=== PATIENT | male | born 1960 | race Caucasian/White ===

== ENCOUNTER 2017-03-24 03:45 | Emergency (ER) | payer MEDICAID ==
--- NOTE | 2017-03-24 04:29 | ED Physician Chart ---
Chief Complaint/HPI - Patient Information Date Seen:: 03/24/17 Time Seen:: 04:20 Chief Complaint:: left leg pain History of Present Illness:: pt is having a flare of his chronic l sciatic pain which he has on/off since in senior care when he injured his back lifting free weights. he injured it again yrs ago when he stepped in a whole. his pain starts behind left hip...and radiates down to the foot..ache pain. is same as in past. he has had flare up of his chronic pain. he says he is not on regular narcotics but refuses to say when last time he was rxd it was...and is angry w me for asking. no fever. pt walked into ed without trouble. says he is homeless. he admits at 1 point to a past hx of heroin abuse but not lately. Allergies:: Allergies Allergy/AdvReac Type Severity Reaction Status Date / Time No Known Allergies Allergy Verified 03/24/17 04:10 Vitals:: Vital Signs - 8 hr 03/24/17 03:45 Temp 98.1 F HR 89 RR 20 BP 162/95 O2 Sat % 95 Historian:: Patient Review of Systems - Review of Systems General/Constitutional: No fever, No chills, No weight loss, No weakness, No diaphoresis, No edema, No loss of appetite Skin: No skin lesions, No rash, No bruising Head: No headache, No light-headedness Eyes: No loss of vision, No pain, No diplopia ENT: No earache, No nasal drainage, No sore throat, No tinnitus Neck: No neck pain, No swelling, No thyromegaly, No stiffness, No mass noted Cardio Vascular: No chest pain, No palpitations, No PND, No orthopnea, No edema Pulmonary: No SOB, No cough, No sputum, No wheezing GI: No nausea, No vomiting, No diarrhea, No pain, No melena, No hematochezia, No constipation, No hematemesis G/U: No dysuria, No frequency, No hematuria Musculoskeletal: Bone or joint pain, No back pain, No muscle pain Endocrine: No polyuria, No polydipsia Psychiatric: No prior psych history, No depression, No anxiety, No suicidal ideation Hematopoietic: No bruising, No lymphadenopathy Allergic/Immuno: No urticaria, No angioedema Neurological: No syncope, No focal symptoms, No weakness, No paresthesia, No headache, No seizure, No dizziness, No confusion, No vertigo Past Medical History - Past Medical History Past Medical History: HTN, DM Social History: Illicit Drug Use (heroin hx) Medication: Reviewed Family Medical History - Family Member Grandmother History Unknown: Yes Mother History Unknown: Yes Ethnicity: Non- Living Status: Physical Exam - Physical Examination General/Constitutional: Awake, Well-developed, well-nourished, Alert, No distress, GCS 15, Non-toxic appearing, Ambulatory Other Gen/Cons comments:: slt overweight. pt is very alert and has been yelling a staff since arrival he "needs pain meds now". he has nonstop speech and is irritable and feels we dont appreciate his pain ( even after I have told him I will give him a rx). he appears very alert for 4; 30 am and his fast pressured speech and hyperexcitable state seem likely he could be in acute withdrawel which he venemently denies. Head: Atraumatic Eyes: Lids, conjuctiva normal, PERRL, EOMI Skin: Nl inspection, No rash, No skin lesions, No ecchymosis, Well hydrated, No lymphadenopathy ENMT: External ears, nose nl, Nasal exam nl, Lips, teeth, gums nl Neck: Nontender, Full ROM w/o pain, No JVD, No nuchal rigidity, No bruit, No mass, No stridor Respiratory: Nl effort/Exclusion, Clear to Auscultation, No Wheeze/Rhonchi/Rales Cardio Vascular: RRR, No murmur, gallop, rubs, NL S1 S2 GI: No tenderness/rebounding/guarding, No organomegaly, No hernia, Normal BS's, Nondistended, No mass/bruits, No McBurney tenderness : No CVA tenderness Extremities: No tenderness or effusion, Full ROM, normal strength in all extremities, No edema, Normal digits & nails Other Extremities comments:: nrml appearing lt leg/hip/knee. no red. no edema. ok pulses. ok str. walks ok. ok rom. no cva tndr. Neuro/Psych: Alert/oriented, DTR's symmetric, Normal sensory exam, Normal motor strength, Judgement/insight normal, Mood normal, Normal gait, No focal deficits Misc: normal gait, Normal back, No paraspinal tenderness ED Septic Shock - . Is Septic Shock (SBP<90, OR Lactate>4 mmol\\L) present?: No - <6hrs of presentation: Vital Signs: Vital Signs - 8 hr 03/24/17 03:45 Temp 98.1 F HR 89 RR 20 BP 162/95 O2 Sat % 95 Reassessment (Disposition) - Reassessment Reassessment Condition:: Improved - Diagnosis Diagnosis:: 1 exacerbation of chronic left sciatic pain //chronic pain 2 htn - Aftercare/Follow up Instructions Aftercare/Follow-Up Instructions:: Counseled pt regarding lab results/diagnosis & need follow up Medication Prescribed:: rx norco 5s no 14 - Patient Disposition Discharge/Transfer:: Home Condition at Disposition:: Improved ED Discharge Plan - Patient Disposition Instructions: Hip Pain
== END 2017-03-24 04:36 | disposition home or self-care (01) ==
LOC: ER 03:45
DX: M79.605 Pain in left leg (principal); I10 Essential (primary) hypertension; E11.9 Type 2 diabetes mellitus without complications
CPT/HCPCS: Z7502

== ENCOUNTER 2017-11-14 16:28 | Inpatient (IN) | payer MEDICAID ==
[2017-11-14] MEDS ORDERED: INSULIN HUMAN REGULAR 100 UNITS/ML UNIT IV ONE (16:53)
[2017-11-14] MEDS ORDERED: INSULIN HUMAN REGULAR 100 UNITS/ML UNIT ONE (17:00)
[2017-11-14 17:01] LABS: % BASOPHILS 0.3 % (0.0-2.0); % EOSINOPHILS 1.2 % (0.0-5.0); % LYMPHOCYTES 28.9 % (20.0-50.0); % MONOCYTES 5.9 % (2.0-10.0); % NEUTROPHILS 63.7 % (40.0-80.0); EOSINOPHILE ABSOLUTE 0.1 Th/cmm (0.1-0.4); HEMATOCRIT 45.6 % (41.0-60); HEMOGLOBIN 15.3 gm/dL (12-16); LYMPHOCYTE ABSOLUTE 2.8 Th/cmm (1.5-3.0); MEAN CELL VOLUME 90.9 fl (80-99); MEAN CORPUSCULAR HEMOGLOBIN 30.5 pg (26.0-30.0); MEAN CORPUSCULAR HGB CONC 33.6 pg (28.0-36.0); MEAN PLATELET VOLUME 9.7 fl; MONOCYTE ABSOLUTE 0.6 Th/cmm (0.3-1.0); NEUTROPHILE ABSOLUTE 6.1 Th/cmm (1.8-8.0); PLATELET COUNT 236 Th/cmm (150-400); RED BLOOD COUNT 5.01 Mil/cmm (4.30-5.70); RED CELL DISTRIBUTION WIDTH 12.1 % (11.5-20.0); WHITE BLOOD COUNT 9.6 Th/cmm (4.8-10.8)
[2017-11-14 17:07] LABS: pH 7.47 (7.35-7.45)
--- NOTE | 2017-11-14 17:07 | ED Physician Chart ---
ED Chief Complaint/HPI - Patient Information Date Seen:: 11/14/17 Time Seen:: 16:50 Chief Complaint:: HIGH BLOOD SUGAR History of Present Illness:: THIS IS A 57 YO HOMELESS MALE DIABETIC WHO IS CONCERNED ABOUT HIS SUGAR BEING ELEVATED. HE DENIES CHEST PAIN, ABDOMINAL PAIN AND HEADACHES. HE DENIES DRINKING ALCOHOL AND DRUG BUT ADMITS TO HEAVY SMOKING. HE HAS BEEN HERE SEVERAL TIMES IN THE PAST FOR THE SAME REASONS. HE HAS HYPERTENSION, DIABETES, DEPRESSION AND ATRIAL FIB. Allergies:: Allergies Allergy/AdvReac Type Severity Reaction Status Date / Time No Known Allergies Allergy Verified 03/24/17 04:10 Vitals:: Vital Signs - 8 hr 11/14/17 16:46 Temp 97.6 F HR 102 RR 18 BP 141/90 O2 Sat % 98 ED Review of Systems - Review of Systems General/Constitutional: No fever, No chills, No weight loss, No weakness, No diaphoresis, Edema, No loss of appetite Skin: No skin lesions, No rash, No bruising Head: No headache, No light-headedness Eyes: No loss of vision, No pain, No diplopia ENT: No earache, No nasal drainage, No sore throat, No tinnitus Neck: No neck pain, No swelling, No thyromegaly, No stiffness, No mass noted Cardio Vascular: No chest pain, No palpitations, No PND, orthopnea, edema Pulmonary: No SOB, No cough, No sputum, No wheezing GI: No nausea, No vomiting, No diarrhea, No pain, No melena, No hematochezia, No constipation, No hematemesis G/U: No dysuria, No frequency, No hematuria Musculoskeletal: No bone or joint pain, No back pain, No muscle pain Endocrine: No polyuria, No polydipsia Psychiatric: No prior psych history, No depression, No anxiety, No suicidal ideation Hematopoietic: No bruising, No lymphadenopathy Allergic/Immuno: No urticaria, No angioedema Neurological: No syncope, No focal symptoms, No weakness, No paresthesia, No headache, No seizure, No dizziness, No confusion, No vertigo ED Past Medical History - Past Medical History Obtainable: Yes Past Medical History: HTN, DM, CHF Family History: None Social History: Smoker, No Alcohol, No Drug Use, Single, Homeless Surgical History: None Psychiatricy History: Depression Medication: Reviewed Family Medical History - Family Member Grandmother History Unknown: Yes Mother History Unknown: Yes Ethnicity: Non- Living Status: ED Physical Exam - Physical Examination General/Constitutional: Awake, Well-developed, well-nourished, Alert, No distress, GCS 15, Non-toxic appearing, Ambulatory Head: Atraumatic Eyes: Lids, conjuctiva normal, PERRL, EOMI Skin: Nl inspection, No rash, No skin lesions, No ecchymosis, Well hydrated, No lymphadenopathy ENMT: External ears, nose nl, Nasal exam nl, Lips, teeth, gums nl Neck: Nontender, Full ROM w/o pain, No JVD, No nuchal rigidity, No bruit, No mass, No stridor Respiratory: Nl effort/Exclusion, Clear to Auscultation, No Wheeze/Rhonchi/Rales Cardio Vascular: RRR, No murmur, gallop, rubs, NL S1 S2 Other Cardio Vascular comments:: heart beat atrial fib with a rate of 95 GI: No tenderness/rebounding/guarding, No organomegaly, No hernia, Normal BS's, Nondistended, No mass/bruits, No McBurney tenderness : No CVA tenderness Extremities: No tenderness or effusion, Full ROM, normal strength in all extremities, No edema, Normal digits & nails Neuro/Psych: Alert/oriented, DTR's symmetric, Normal sensory exam, Normal motor strength, Judgement/insight normal, Mood normal, Normal gait, No focal deficits Misc: Normal back, No paraspinal tenderness ED Labs/Radiology/EKG Results - Lab Results Results: Laboratory Tests 11/14/17 16:40 POC Glucose 548 H* Abnormal Lab Results 11/14/17 11/14/17 11/14/17 16:40 16:45 16:45 WBC 9.6 RBC 5.01 Hgb 15.3 Hct 45.6 MCV 90.9 MCH 30.5 H MCHC Differential 33.6 RDW 12.1 Plt Count 236 MPV 9.7 Neutrophils % 63.7 Lymphocytes % 28.9 Monocytes % 5.9 Eosinophils % 1.2 Basophils % 0.3 PT 10.6 INR 1.02 PTT (Actin FS) 25.2 L Specimen Source Sample Site pH pCO2 pO2 HCO3 Base Excess O2 Saturation Antonio Test Vent Rate Inspired O2 Tidal Volume PEEP Pressure (ins/psv/peep) Critical Value Sodium Potassium Chloride Carbon Dioxide Anion Gap BUN Creatinine Est GFR ( Amer) Est GFR (Non-Af Amer) BUN/Creatinine Ratio Glucose POC Glucose 548 H* Calcium Total Bilirubin AST ALT Alkaline Phosphatase Troponin I Total Protein Albumin Globulin Albumin/Globulin Ratio TSH Ethyl Alcohol 11/14/17 11/14/17 11/14/17 16:45 16:45 16:45 WBC RBC Hgb Hct MCV MCH MCHC Differential RDW Plt Count MPV Neutrophils % Lymphocytes % Monocytes % Eosinophils % Basophils % PT INR PTT (Actin FS) Specimen Source Sample Site pH pCO2 pO2 HCO3 Base Excess O2 Saturation Antonio Test Vent Rate Inspired O2 Tidal Volume PEEP Pressure (ins/psv/peep) Critical Value Sodium 126 L Potassium 3.5 Chloride 91 L Carbon Dioxide 22.0 Anion Gap 16.5 H BUN 14 Creatinine 1.1 Est GFR ( Amer) > 60.0 Est GFR (Non-Af Amer) > 60.0 BUN/Creatinine Ratio 12.7 Glucose 532 H* POC Glucose Calcium 8.9 Total Bilirubin 0.5 AST 16 ALT 23 Alkaline Phosphatase 107 H Troponin I 0.02 Total Protein 6.6 Albumin 3.8 L Globulin 2.8 Albumin/Globulin Ratio 1.4 TSH 1.75 Ethyl Alcohol 11/14/17 11/14/17 11/14/17 16:45 16:55 17:49 WBC RBC Hgb Hct MCV MCH MCHC Differential RDW Plt Count MPV Neutrophils % Lymphocytes % Monocytes % Eosinophils % Basophils % PT INR PTT (Actin FS) Specimen Source Arterial Sample Site Right Radial pH 7.47 H pCO2 35.0 pO2 74.0 L HCO3 26.5 H Base Excess 2.0 O2 Saturation 96.0 Antonio Test Positive Vent Rate NA Inspired O2 21 Tidal Volume NA PEEP NA Pressure (ins/psv/peep) NA Critical Value SH Sodium Potassium Chloride Carbon Dioxide Anion Gap BUN Creatinine Est GFR ( Amer) Est GFR (Non-Af Amer) BUN/Creatinine Ratio Glucose POC Glucose 311 H Calcium Total Bilirubin AST ALT Alkaline Phosphatase Troponin I Total Protein Albumin Globulin Albumin/Globulin Ratio TSH Ethyl Alcohol < 10 - Radiology Results Results: chest x-ray = CARDIOMEGALY - EKG Interpretations EKG Time:: 16:45 Rate & Rhythm: 105 WITH ATRIAL FIB AND FLUTTER 2:1 BLOCK [place]: LEFT ED Assessment - Assessment General Assessment: DIABETES MELLITUS UNCONTROLLED ED Septic Shock - . Is Septic Shock (SBP<90, OR Lactate>4 mmol\L) present?: No - <6hrs of presentation: Vital Signs: Vital Signs - 8 hr 11/14/17 16:46 Temp 97.6 F HR 102 RR 18 BP 141/90 O2 Sat % 98 ED Reassessment (Disposition) - Reassessment Reassessment:: DIABETES MELLITUS UNCONTROLLED - Diagnosis Diagnosis:: DIABETES MELLITUS UNCONTROLLED ATRIAL FIB/FLUTTER - Patient Disposition Discharge/Transfer:: Acute Care w/in this hosp Admitting Medical Physician:: Patience Romo Condition at Disposition:: Improved ED Discharge Plan - Patient Disposition Admit/Discharge/Transfer: Acute Care w/in this hosp Condition at Disposition: Improved Additional Instructions: THIS PATIENT WILL BE CARED FOR BY DR. MERCEDES STARTING AT 1900 HRS.
[2017-11-14 17:08] LABS: ALLEN TEST Positive
[2017-11-14 17:17] LABS: INR 1.02 (0.5-1.4); PROTHROMBIN TIME (TEST) 10.6 SECONDS (9.5-11.5)
[2017-11-14 17:19] LABS: ALB/GLOB RATIO 1.4 (1.0-1.8); ALBUMIN 3.8 gm/dL (4.2-5.5); ALKALINE PHOSPHATASE 107 U/L (34-104); ANION GAP 16.5 (7.0-16.0); BILIRUBIN,TOTAL 0.5 mg/dL (0.3-1.0); BUN - UREA NITROGEN 14 mg/dL (7-25); CALCIUM SERUM 8.9 mg/dL (8.6-10.3); CHLORIDE 91 mEq/L (98-107); CREATININE - SERUM 1.1 mg/dL (0.7-1.3); GFR AFRICAN-AMERICAN > 60.0 ml/min (>90); GFR NON AFRICAN-AMERICAN > 60.0 ml/min; POTASSIUM SERUM 3.5 mEq/L (3.5-5.1); SGOT 16 U/L (13-39); SGPT/ALT 23 U/L (7-52); SODIUM SERUM 126 mEq/L (136-145); TOTAL PROTEIN,SERUM 6.6 gm/dL (6.0-8.3)
[2017-11-14 17:22] LABS: GLUCOSE 532 mg/dL (70-105)
[2017-11-14] MEDS ORDERED: Sodium Chloride 0.9% 1,000 ML IV ONE (17:45)
[2017-11-14] MEDS ORDERED: Potassium Chloride Elixir 20 mEq /15 mL UDC PO ONE (17:45)
[2017-11-14] MEDS ORDERED: Potassium Chloride 20 mEq ER Tab PO ONE (18:02)
[2017-11-14] MEDS ORDERED: Albuterol/Ipratropium Neb 3 ML AERS HHN PRN (19:00)
[2017-11-14] MEDS ORDERED: INSULIN HUMAN REGULAR 100 UNITS/ML UNIT SUBQ ONE (19:01)
[2017-11-14 20:11] LABS: URINE MICROSCOPIC INDICATED? YES; URINE SOURCE CLEAN C
[2017-11-14 20:18] LABS: URINE BILIRUBIN NEGATIVE (NEGATIVE); URINE BLOOD NEGATIVE (NEGATIVE); URINE GLUCOSE (UA) >=1000 mg/dL (NEGATIVE); URINE KETONE NEGATIVE (NEGATIVE); URINE LEUKOCYTE ESTERASE NEGATIVE (NEGATIVE); URINE NITRATE NEGATIVE (NEGATIVE); URINE PH 5.5 (4.6 - 8.0); URINE PROTEIN NEGATIVE (NEGATIVE); URINE UROBILINOGEN 0.2 E.U./dL (0.2 - 1.0)
[2017-11-14 20:27] LABS: URINE CLARITY CLEAR (CLEAR); URINE COLOR YELLOW
[2017-11-14 20:33] LABS: URINE BACTERIA OCCASIONAL /hpf (NONE SEEN); URINE EPITHELIAL CELLS RARE /lpf (FEW); URINE RBC 0-2 /hpf (0-5); URINE WBC 0-2 /hpf (0-5)
[2017-11-14 21:38] LABS: AMPHETAMINE URINE POSITIVE (NEGATIVE); BARBITURATES URINE NEGATIVE (NEGATIVE); COCAINE METABOLITE QUAL URINE NEGATIVE (NEGATIVE); PHENCYCLIDINE (PCP) URINE NEGATIVE (NEGATIVE)
[2017-11-14 21:39] LABS: BENZODIAZEPINES QUAL URINE NEGATIVE (NEGATIVE); CANNABINOID THC NEGATIVE (NEGATIVE); METHADONE URINE NEGATIVE (NEGATIVE); METHAMPHETAMINES QUAL URINE POSITIVE (NEGATIVE); OPIATES (MORPHINE) QUAL. URINE NEGATIVE (NEGATIVE); TRICYCLICS (TCA) QUAL. URINE NEGATIVE (NEGATIVE)
[2017-11-14] MEDS: Sodium Chloride 0.45% 1,000 ML IV SCH (21:48)
--- NOTE | 2017-11-14 22:32 | History & Physical ---
ADMIT DATE: 11/14/2017 CHIEF COMPLAINT: Severe hyperglycemia. HISTORY OF PRESENT ILLNESS: The patient is a 57-year-old male with long history of insulin required diabetes mellitus, atrial fibrillation, hypertension, presented to the Emergency Room with severe hyperglycemia. No chest pain, no shortness of breath, no nausea, no vomiting. On arrival, his blood sugar was 548. The patient had 10 units of regular insulin IV push. Admitted to telemetry for more advanced treatment, started on IV fluids, CCHO diet, sliding scale regular insulin coverage. He is to resume his home medication. PAST MEDICAL HISTORY: Significant for insulin required diabetes mellitus, history of chronic atrial fibrillation, hypertension, obesity. PAST SURGICAL HISTORY: No recent surgery. ALLERGIES: None. MEDICATIONS: Follow admission reconciliation. SOCIAL HISTORY: No smoking, no alcohol, no drug. FAMILY HISTORY: Noncontributory. REVIEW OF SYSTEMS: IMMUNO SYSTEM: No history of chronic immuno disorder. CARDIOVASCULAR SYSTEM: He has history of hypertension, chronic atrial fibrillation. ENDOCRINE SYSTEM: He has history of diabetes mellitus, insulin required. GASTROINTESTINAL SYSTEM: No upper or lower gastrointestinal bleed. NEUROLOGICAL SYSTEM: No seizure disorder. SKELETOMUSCULAR SYSTEM: No muscular dystrophy. HEMATOLOGIC SYSTEM: No bleeding tendencies. RESPIRATORY SYSTEM: No asthma. GENITOURINARY: No dysuria or hematuria. PHYSICAL EXAMINATION: GENERAL: He is awake, alert, oriented, not in pain or distress. VITAL SIGNS: Temperature 98.6, heart rate 66, blood pressure 140/80. HEENT: Normocephalic. Pupils are reactive to light and accommodation. Sclerae clear. NECK: Supple. Negative for lymphadenopathy, JVD or bruit. CHEST: Air entry bilaterally normal. No rhonchi or wheezing. HEART: S1, S2 normal, no gallop rhythm. ABDOMEN: Soft, bowel sounds positive. EXTREMITIES: No edema. NEUROLOGIC: He is awake, alert, oriented. No focal motor deficit. Cranial nerves 2-12 is intact. LABORATORY DATA: White blood cell 9.6, hemoglobin 15.3, hematocrit 45.6, platelets 236. INR 1.02. ABG: pH is 7.47, pCO2 is 74, pO2 is 35. Sodium 126, potassium 3.5, BUN 14, creatinine 0.1. Urine more than 1000 glucose. ASSESSMENT: 1. Uncontrolled diabetes mellitus. 2. Hypertension. 3. Chronic atrial fibrillation. 4. Hyponatremia. 5. Obesity. PLAN: The patient admitted to telemetry under Dr. Romo's service. Start him on IV fluid, CCHO diet, sliding scale with regular insulin coverage. The patient will resume his home medication, Lovenox 40 mg subcutaneously daily. The patient is a full code. JOB# [id number]
[2017-11-14] MEDS: INSULIN ASPART SLIDING SCALE 100 UNITS/ML UNIT SUBQ SCH (23:18)
[2017-11-15] MEDS ORDERED: Pneumococcal Vaccine 0.5 mL Vial IM ONE ×2 (01:06→11:45)
[2017-11-15] MEDS: INSULIN ASPART SLIDING SCALE 100 UNITS/ML UNIT SUBQ SCH ×4 (07:43→21:28)
--- NOTE | 2017-11-15 07:45 | Diagnostic Imaging Report ---
CHEST X-RAY: AP view INDICATION: pain COMPARISON: 12/13/2016 FINDINGS: Minimal bibasal atelectatic changes are noted. The patient is mildly rotated. No focal consolidation or effusions. Heart is at the upper limits of normal in size. Degenerative changes of the spine are noted. IMPRESSION: Minimal bibasal atelectatic changes. No focal consolidation identified.
[2017-11-15] MEDS: Diltiazem 30 mg Tab PO SCH ×3 (09:09→21:34)
[2017-11-15] MEDS: Sodium Chloride 0.45% 1,000 ML IV SCH (11:33)
--- NOTE | 2017-11-15 16:42 | Internal Medicine Prog Note ---
Internal Medicine Subjective - Subjective Patient seen and examined:: with staff Patient is:: awake, in bed, talking Per staff patient has:: no adverse event (HE IS DOING BETTER.) Internal Medicine Objective - Results Result Diagrams: 11/14/17 16:45 11/14/17 16:45 Recent Labs: Laboratory Last Values WBC 9.6 Th/cmm (4.8-10.8) 11/14/17 16:45 RBC 5.01 Mil/cmm (4.30-5.70) 11/14/17 16:45 Hgb 15.3 gm/dL (12-16) 11/14/17 16:45 Hct 45.6 % (41.0-60) 11/14/17 16:45 MCV 90.9 fl (80-99) 11/14/17 16:45 MCH 30.5 pg (26.0-30.0) H 11/14/17 16:45 MCHC Differential 33.6 pg (28.0-36.0) 11/14/17 16:45 RDW 12.1 % (11.5-20.0) 11/14/17 16:45 Plt Count 236 Th/cmm (150-400) 11/14/17 16:45 MPV 9.7 fl 11/14/17 16:45 Neutrophils % 63.7 % (40.0-80.0) 11/14/17 16:45 Lymphocytes % 28.9 % (20.0-50.0) 11/14/17 16:45 Monocytes % 5.9 % (2.0-10.0) 11/14/17 16:45 Eosinophils % 1.2 % (0.0-5.0) 11/14/17 16:45 Basophils % 0.3 % (0.0-2.0) 11/14/17 16:45 PT 10.6 SECONDS (9.5-11.5) 11/14/17 16:45 INR 1.02 (0.5-1.4) 11/14/17 16:45 PTT (Actin FS) 25.2 SECONDS (26.0-38.0) L 11/14/17 16:45 Specimen Source Arterial 11/14/17 16:55 Sample Site Right Radial 11/14/17 16:55 pH 7.47 (7.35-7.45) H 11/14/17 16:55 pCO2 35.0 mmHg (35.0-45.0) 11/14/17 16:55 pO2 74.0 mmHg (80.0-100.0) L 11/14/17 16:55 HCO3 26.5 mEq/L (20.0-26.0) H 11/14/17 16:55 Base Excess 2.0 mEq/L (-3.0-3.0) 11/14/17 16:55 O2 Saturation 96.0 % (92.0-100.0) 11/14/17 16:55 Antonio Test Positive 11/14/17 16:55 Vent Rate NA 11/14/17 16:55 Inspired O2 21 11/14/17 16:55 Tidal Volume NA 11/14/17 16:55 PEEP NA 11/14/17 16:55 Pressure (ins/psv/peep) NA 11/14/17 16:55 Critical Value SH 11/14/17 16:55 Sodium 126 mEq/L (136-145) L 11/14/17 16:45 Potassium 3.5 mEq/L (3.5-5.1) 11/14/17 16:45 Chloride 91 mEq/L (98-107) L 11/14/17 16:45 Carbon Dioxide 22.0 mEq/L (21.0-31.0) 11/14/17 16:45 Anion Gap 16.5 (7.0-16.0) H 11/14/17 16:45 BUN 14 mg/dL (7-25) 11/14/17 16:45 Creatinine 1.1 mg/dL (0.7-1.3) 11/14/17 16:45 Est GFR ( Amer) > 60.0 ml/min (>90) 11/14/17 16:45 Est GFR (Non-Af Amer) > 60.0 ml/min 11/14/17 16:45 BUN/Creatinine Ratio 12.7 11/14/17 16:45 Glucose 532 mg/dL (70-105) H* 11/14/17 16:45 POC Glucose 295 MG/DL (70 - 105) H 11/15/17 06:38 Calcium 8.9 mg/dL (8.6-10.3) 11/14/17 16:45 Total Bilirubin 0.5 mg/dL (0.3-1.0) 11/14/17 16:45 AST 16 U/L (13-39) 11/14/17 16:45 ALT 23 U/L (7-52) 11/14/17 16:45 Alkaline Phosphatase 107 U/L (34-104) H 11/14/17 16:45 Troponin I 0.02 ng/mL (0.01-0.05) 11/14/17 16:45 Total Protein 6.6 gm/dL (6.0-8.3) 11/14/17 16:45 Albumin 3.8 gm/dL (4.2-5.5) L 11/14/17 16:45 Globulin 2.8 gm/dL 11/14/17 16:45 Albumin/Globulin Ratio 1.4 (1.0-1.8) 11/14/17 16:45 TSH 1.75 uIU/ml (0.34-5.60) 11/14/17 16:45 Urine Source CLEAN C 11/14/17 20:05 Urine Color YELLOW 11/14/17 20:05 Urine Clarity CLEAR (CLEAR) 11/14/17 20:05 Urine pH 5.5 (4.6 - 8.0) 11/14/17 20:05 Ur Specific [place] 1.015 (1.005-1.030) 11/14/17 20:05 Urine Protein NEGATIVE mg/dL (NEGATIVE) 11/14/17 20:05 Urine Glucose (UA) >=1000 mg/dL (NEGATIVE) H 11/14/17 20:05 Urine Ketones NEGATIVE mg/dL (NEGATIVE) 11/14/17 20:05 Urine Blood NEGATIVE (NEGATIVE) 11/14/17 20:05 Urine Nitrate NEGATIVE (NEGATIVE) 11/14/17 20:05 Urine Bilirubin NEGATIVE (NEGATIVE) 11/14/17 20:05 Urine Urobilinogen 0.2 E.U./dL (0.2 - 1.0) 11/14/17 20:05 Ur Leukocyte Esterase NEGATIVE (NEGATIVE) 11/14/17 20:05 Urine RBC 0-2 /hpf (0-5) H 11/14/17 20:05 Urine WBC 0-2 /hpf (0-5) 11/14/17 20:05 Ur Epithelial Cells RARE /lpf (FEW) 11/14/17 20:05 Urine Bacteria OCCASIONAL /hpf (NONE SEEN) 11/14/17 20:05 Urine Opiates Screen NEGATIVE (NEGATIVE) 11/14/17 20:05 Urine Methadone Screen NEGATIVE (NEGATIVE) 11/14/17 20:05 Ur Barbiturates Screen NEGATIVE (NEGATIVE) 11/14/17 20:05 Ur Tricyclics Screen NEGATIVE (NEGATIVE) 11/14/17 20:05 Ur Phencyclidine Scrn NEGATIVE (NEGATIVE) 11/14/17 20:05 Amphetamines Screen POSITIVE (NEGATIVE) H 11/14/17 20:05 U Methamphetamines Scrn POSITIVE (NEGATIVE) H 11/14/17 20:05 U Benzodiazepines Scrn NEGATIVE (NEGATIVE) 11/14/17 20:05 U Cocaine Metab Screen NEGATIVE (NEGATIVE) 11/14/17 20:05 U Cannabinoids Screen NEGATIVE (NEGATIVE) 11/14/17 20:05 Ethyl Alcohol < 10 mg/dL (0-10) 11/14/17 16:45 - Physical Exam Vitals and I&O: Vital Signs Temp 98.2 F 11/15/17 09:00 Pulse 96 11/15/17 14:00 Resp 27 11/15/17 14:00 BP 150/65 11/15/17 14:00 Pulse Ox 99 11/15/17 14:00 Intake & Output 11/14/17 11/15/17 11/15/17 18:59 06:59 18:59 Intake Total 500 883.75 Output Total 400 Balance 100 883.75 Weight (lbs) 99.79 kg Intake: Intake, IV Amount 883.75 Sodium Chloride 0.45% 1, 883.75 000 ml @ 75 mls/hr IV . [id number] [facility] Rx#:[id number] Oral 500 Output: Urine 400 Other: # Voids 1 # Bowel Movements 0 Weight Source Bedscale Active Medications: Current Medications Acetaminophen (Tylenol) 650 mg PO Q4H PRN PRN Reason: Pain (Moderate) Stop: 01/13/18 22:43 Albuterol/Ipratropium (Duoneb Neb) 3 ml HHN Q4H PRN PRN Reason: Wheezing Stop: 01/13/18 18:59 Atorvastatin Calcium (Lipitor) 40 mg PO DAILY [facility] PRN Reason: Protocol Stop: 01/14/18 08:59 Last Admin: 11/15/17 09:08 Dose: 40 mg Carvedilol (Coreg) 25 mg PO BID [facility] Stop: 01/14/18 08:59 Last Admin: 11/15/17 09:10 Dose: 25 mg Diltiazem HCl (Cardizem) 60 mg PO TID [facility] Stop: 01/14/18 08:59 Last Admin: 11/15/17 13:26 Dose: 60 mg Sodium Chloride (Nacl 0.45%) 1,000 mls @ 75 mls/hr IV .[id number] [facility] Stop: 01/13/18 18:59 Last Admin: 11/15/17 11:33 Dose: 75 mls/hr Insulin Aspart (Novolog Insulin Sliding Scale) 0 units SUBQ ACHS [facility] PRN Reason: Protocol Stop: 01/13/18 22:44 Last Admin: 11/15/17 11:27 Dose: 13 units Lisinopril (Zestril) 5 mg PO DAILY [facility] Stop: 01/14/18 08:59 Last Admin: 11/15/17 09:11 Dose: 5 mg Metformin HCl (Glucophage) 1,000 mg PO BID [facility] Stop: 01/14/18 08:59 Last Admin: 11/15/17 09:09 Dose: 1,000 mg Rivaroxaban (Xarelto) 20 mg PO DAILY [facility] Stop: 01/14/18 08:59 Last Admin: 11/15/17 09:11 Dose: 20 mg General: alert HEENT: NC/AT, PERRLA, EOMI, anicteric sclerae, throat clear Neck: Supple, No JVD, No thyromegaly, +2 carotid pulse wo bruit, No LAD Cardiovascular: RRR, Normal S1, Normal S2, without murmur Abdomen: soft, non-tender, non-distended Extremities: clear Neurological: no change Internal Medicine Assmt/Plan - Assessment Assessment: 1.UNCONTROLLED DM. 2.AFIB. 3.HTN. - Plan Plan: CHEM 7 IN AM.LEVEMIR 10 UNITS SC HS. Nutritional Asmnt/Malnutr-PDOC - Dietary Evaluation Malnutrition Findings (Please click <Entered> for more info): Nutritional Asmnt/Malnutrition Start: 11/15/17 14: 56 Text: Status: Complete Freq: Document 11/15/17 14:56 VIOLETTA (Rec: 11/15/17 15:09 LCHENG [email or web address]) Nutritional Asmnt/Malnutrition Patient General Information Nutritional Screening High Risk Consult Diagnosis uncontrolled DM Pertinent Medical Hx/Surgical Hx DM on insulin, chronic a fib, HTN, obesity Subjective Information Consult received for unconctrolled DM. RN called this morning that pt requested another sandwich again d/t pt feeling hungry after consuming 100% of breakfast. Talk with RN, will send double protein and veggies with meals. Pt seen lying in bed at time of visit, awake and alert. Pt is aware of risk of uncontrolled DM, ready to make some change on diet. Pt also reported he has no teeth, not able to chew the regular textured food. Offered [facility] soft ground diet, pt would like to take it. Per EMR, PO intake 100% of meals with extra snacks. Current Diet Order/ Nutrition Support CCHO-60gm, double protein double veggies Pertinent Medications novolog, glucophage, nacl 0.45 % Pertinent Labs 11/14 Na 126, K 3.5, Cl 91, BUN 14, Cr 1.1, glucose 532, POC 233-548 11/15 POC 295 Nutritional Hx/Data Height 1.68 m Height (Calculated Centimeters) 167.6 Current Weight (lbs) 99.79 kg Weight (Calculated Kilograms) 99.8 Weight (Calculated Grams) 34060.3 [place] Body Weight 142 Body Mass Index (BMI) 35.5 Weight Status Obese GI Symptoms GI Symptoms None Last BM none Difficult in: None Usual diet at home Pt stated he loves root bear, ice cream, cakes, no diet restrictions. Skin Integrity/Comment: ulceration to right leg and right knee Estimated Nutritional Goals BEE in Kcals: Adj wt of IBW Calories/Kcals/Kg 25-30 Kcals Calculated 4341-6806 Protein: Adj wt of IBW Protein g/k-1.2 Protein Calculated 73-87 Fluid: ml 1825-2190ml (1ml/kcal) Nutritional Problem 1. Problem Problem altered nutrition related labs Etiology hx of DM, not following diabetic diet Signs/Symptoms: glucose 532, POC 233-548 Malnutrition Alert Protein-Calorie Malnutrition N/A Is there a minimum of two criteria No selected? Query Text:Check all the applicable criteria. A minimum of two criteria are recommended for diagnosis of either severe or non-severe malnutrition. Intervention/Recommendation Comments 1. Recommend [facility] soft ground, CCHO-60gm with double protein and veggies. KELLEN Hogan said doctor will follow RD recommendation. Updated diet. 2. Pt was sleepy at sencond visit. Brief nutrition education provided. Handout left on table. Will talk more details on diabetic diet at next visit. 3. Monitor PO intake, wt, labs and skin integrity 4. F/U as high risk in 2-3 days, 11/17-11/18 Expected Outcomes/Goals Expected Outcomes/Goals 1. PO intake to meet at least 75% of nutritional needs. 2. Wt stability, skin to remain intact, labs to approach WNL.
[2017-11-15 18:28] LABS: A1C % 16.2 % (4.0-6.0)
[2017-11-15] MEDS: Insulin Detemir 100 units/mL 10mL Vial SUBQ SCH (21:30)
[2017-11-16 04:38] LABS: ALB/GLOB RATIO 1.3 (1.0-1.8); ALBUMIN 3.1 gm/dL (4.2-5.5); ALKALINE PHOSPHATASE 79 U/L (34-104); ANION GAP 9.1 (7.0-16.0); BILIRUBIN,TOTAL 0.4 mg/dL (0.3-1.0); BUN - UREA NITROGEN 19 mg/dL (7-25); CALCIUM SERUM 8.2 mg/dL (8.6-10.3); CARBON DIOXIDE 26.3 mEq/L (21.0-31.0); CHLORIDE 99 mEq/L (98-107); CREATININE - SERUM 1.1 mg/dL (0.7-1.3); GFR AFRICAN-AMERICAN > 60.0 ml/min (>90); GFR NON AFRICAN-AMERICAN > 60.0 ml/min; GLUCOSE 262 mg/dL (70-105); POTASSIUM SERUM 3.4 mEq/L (3.5-5.1); SGOT 18 U/L (13-39); SGPT/ALT 21 U/L (7-52); SODIUM SERUM 131 mEq/L (136-145); TOTAL PROTEIN,SERUM 5.5 gm/dL (6.0-8.3); URIC ACID 5.8 mg/dL (4.4-7.6)
[2017-11-16] MEDS: INSULIN ASPART SLIDING SCALE 100 UNITS/ML UNIT SUBQ SCH ×4 (06:58→21:16)
[2017-11-16] MEDS: Diltiazem 30 mg Tab PO SCH ×3 (08:24→21:15)
[2017-11-16] MEDS ORDERED: Potassium Chloride Elixir 20 mEq /15 mL UDC PO ONE (12:00)
[2017-11-16] MEDS: Sodium Chloride 0.45% 1,000 ML IV SCH (14:20)
--- NOTE | 2017-11-16 20:08 | Internal Medicine Prog Note ---
Internal Medicine Subjective - Subjective Service Date: 11/16/17 Patient seen and examined:: without staff (HE FEELS BETTER) Patient is:: awake, in bed, talking Per staff patient has:: no adverse event (HE IS DOING BETTER.) Internal Medicine Objective - Results Result Diagrams: 11/14/17 16:45 11/16/17 04:05 Recent Labs: Laboratory Last Values WBC 9.6 Th/cmm (4.8-10.8) 11/14/17 16:45 RBC 5.01 Mil/cmm (4.30-5.70) 11/14/17 16:45 Hgb 15.3 gm/dL (12-16) 11/14/17 16:45 Hct 45.6 % (41.0-60) 11/14/17 16:45 MCV 90.9 fl (80-99) 11/14/17 16:45 MCH 30.5 pg (26.0-30.0) H 11/14/17 16:45 MCHC Differential 33.6 pg (28.0-36.0) 11/14/17 16:45 RDW 12.1 % (11.5-20.0) 11/14/17 16:45 Plt Count 236 Th/cmm (150-400) 11/14/17 16:45 MPV 9.7 fl 11/14/17 16:45 Neutrophils % 63.7 % (40.0-80.0) 11/14/17 16:45 Lymphocytes % 28.9 % (20.0-50.0) 11/14/17 16:45 Monocytes % 5.9 % (2.0-10.0) 11/14/17 16:45 Eosinophils % 1.2 % (0.0-5.0) 11/14/17 16:45 Basophils % 0.3 % (0.0-2.0) 11/14/17 16:45 PT 10.6 SECONDS (9.5-11.5) 11/14/17 16:45 INR 1.02 (0.5-1.4) 11/14/17 16:45 PTT (Actin FS) 25.2 SECONDS (26.0-38.0) L 11/14/17 16:45 Specimen Source Arterial 11/14/17 16:55 Sample Site Right Radial 11/14/17 16:55 pH 7.47 (7.35-7.45) H 11/14/17 16:55 pCO2 35.0 mmHg (35.0-45.0) 11/14/17 16:55 pO2 74.0 mmHg (80.0-100.0) L 11/14/17 16:55 HCO3 26.5 mEq/L (20.0-26.0) H 11/14/17 16:55 Base Excess 2.0 mEq/L (-3.0-3.0) 11/14/17 16:55 O2 Saturation 96.0 % (92.0-100.0) 11/14/17 16:55 Antonio Test Positive 11/14/17 16:55 Vent Rate NA 11/14/17 16:55 Inspired O2 21 11/14/17 16:55 Tidal Volume NA 11/14/17 16:55 PEEP NA 11/14/17 16:55 Pressure (ins/psv/peep) NA 11/14/17 16:55 Critical Value SH 11/14/17 16:55 Sodium 131 mEq/L (136-145) L 11/16/17 04:05 Potassium 3.4 mEq/L (3.5-5.1) L 11/16/17 04:05 Chloride 99 mEq/L (98-107) 11/16/17 04:05 Carbon Dioxide 26.3 mEq/L (21.0-31.0) 11/16/17 04:05 Anion Gap 9.1 (7.0-16.0) 11/16/17 04:05 BUN 19 mg/dL (7-25) 11/16/17 04:05 Creatinine 1.1 mg/dL (0.7-1.3) 11/16/17 04:05 Est GFR ( Amer) > 60.0 ml/min (>90) 11/16/17 04:05 Est GFR (Non-Af Amer) > 60.0 ml/min 11/16/17 04:05 BUN/Creatinine Ratio 17.3 11/16/17 04:05 Glucose 262 mg/dL (70-105) H 11/16/17 04:05 POC Glucose 196 MG/DL (70 - 105) H 11/16/17 16:38 Hemoglobin A1c % 16.2 % (4.0-6.0) H 11/14/17 16:45 Uric Acid 5.8 mg/dL (4.4-7.6) 11/16/17 04:05 Calcium 8.2 mg/dL (8.6-10.3) L 11/16/17 04:05 Total Bilirubin 0.4 mg/dL (0.3-1.0) 11/16/17 04:05 AST 18 U/L (13-39) 11/16/17 04:05 ALT 21 U/L (7-52) 11/16/17 04:05 Alkaline Phosphatase 79 U/L (34-104) 11/16/17 04:05 Troponin I 0.02 ng/mL (0.01-0.05) 11/14/17 16:45 Total Protein 5.5 gm/dL (6.0-8.3) L 11/16/17 04:05 Albumin 3.1 gm/dL (4.2-5.5) L 11/16/17 04:05 Globulin 2.4 gm/dL 11/16/17 04:05 Albumin/Globulin Ratio 1.3 (1.0-1.8) 11/16/17 04:05 TSH 1.75 uIU/ml (0.34-5.60) 11/14/17 16:45 Urine Source CLEAN C 11/14/17 20:05 Urine Color YELLOW 11/14/17 20:05 Urine Clarity CLEAR (CLEAR) 11/14/17 20:05 Urine pH 5.5 (4.6 - 8.0) 11/14/17 20:05 Ur Specific [place] 1.015 (1.005-1.030) 11/14/17 20:05 Urine Protein NEGATIVE mg/dL (NEGATIVE) 11/14/17 20:05 Urine Glucose (UA) >=1000 mg/dL (NEGATIVE) H 11/14/17 20:05 Urine Ketones NEGATIVE mg/dL (NEGATIVE) 11/14/17 20:05 Urine Blood NEGATIVE (NEGATIVE) 11/14/17 20:05 Urine Nitrate NEGATIVE (NEGATIVE) 11/14/17 20:05 Urine Bilirubin NEGATIVE (NEGATIVE) 11/14/17 20:05 Urine Urobilinogen 0.2 E.U./dL (0.2 - 1.0) 11/14/17 20:05 Ur Leukocyte Esterase NEGATIVE (NEGATIVE) 11/14/17 20:05 Urine RBC 0-2 /hpf (0-5) H 11/14/17 20:05 Urine WBC 0-2 /hpf (0-5) 11/14/17 20:05 Ur Epithelial Cells RARE /lpf (FEW) 11/14/17 20:05 Urine Bacteria OCCASIONAL /hpf (NONE SEEN) 11/14/17 20:05 Urine Opiates Screen NEGATIVE (NEGATIVE) 11/14/17 20:05 Urine Methadone Screen NEGATIVE (NEGATIVE) 11/14/17 20:05 Ur Barbiturates Screen NEGATIVE (NEGATIVE) 11/14/17 20:05 Ur Tricyclics Screen NEGATIVE (NEGATIVE) 11/14/17 20:05 Ur Phencyclidine Scrn NEGATIVE (NEGATIVE) 11/14/17 20:05 Amphetamines Screen POSITIVE (NEGATIVE) H 11/14/17 20:05 U Methamphetamines Scrn POSITIVE (NEGATIVE) H 11/14/17 20:05 U Benzodiazepines Scrn NEGATIVE (NEGATIVE) 11/14/17 20:05 U Cocaine Metab Screen NEGATIVE (NEGATIVE) 11/14/17 20:05 U Cannabinoids Screen NEGATIVE (NEGATIVE) 11/14/17 20:05 Ethyl Alcohol < 10 mg/dL (0-10) 11/14/17 16:45 - Physical Exam Vitals and I&O: Vital Signs Temp 98.0 F 11/16/17 16:00 Pulse 69 11/16/17 16:53 Resp 19 11/16/17 16:00 BP 116/71 11/16/17 16:53 Pulse Ox 98 11/16/17 16:00 Intake & Output 11/16/17 11/16/17 11/17/17 06:59 18:59 06:59 Intake Total 1060 600 Balance 1060 600 Weight (lbs) 103.419 kg 103.419 kg Intake: Intake, IV Amount 1000 Sodium Chloride 0.45% 1, 1000 000 ml @ 75 mls/hr IV . [id number] [facility] Rx#:[id number] Oral 60 600 Other: # Voids 3 # Bowel Movements 1 Weight Source Bedscale Bedscale Active Medications: Current Medications Acetaminophen (Tylenol) 650 mg PO Q4H PRN PRN Reason: Pain (Moderate) Stop: 01/13/18 22:43 Albuterol/Ipratropium (Duoneb Neb) 3 ml HHN Q4H PRN PRN Reason: Wheezing Stop: 01/13/18 18:59 Atorvastatin Calcium (Lipitor) 40 mg PO DAILY [facility] PRN Reason: Protocol Stop: 01/14/18 08:59 Last Admin: 11/16/17 08:25 Dose: 40 mg Carvedilol (Coreg) 25 mg PO BID [facility] Stop: 01/14/18 08:59 Last Admin: 11/16/17 16:53 Dose: 25 mg Diltiazem HCl (Cardizem) 60 mg PO TID [facility] Stop: 01/14/18 08:59 Last Admin: 11/16/17 14:24 Dose: Not Given Sodium Chloride (Nacl 0.45%) 1,000 mls @ 75 mls/hr IV .[id number] [facility] Stop: 01/13/18 18:59 Last Admin: 11/16/17 14:20 Dose: 75 mls/hr Insulin Aspart (Novolog Insulin Sliding Scale) 0 units SUBQ ACHS [facility] PRN Reason: Protocol Stop: 01/13/18 22:44 Last Admin: 11/16/17 16:53 Dose: 3 units Insulin Detemir (Levemir Insulin) 10 units SUBQ HS [facility] PRN Reason: Protocol Stop: 01/14/18 20:59 Last Admin: 11/15/17 21:30 Dose: 10 units Lisinopril (Zestril) 5 mg PO DAILY [facility] Stop: 01/14/18 08:59 Last Admin: 11/16/17 08:24 Dose: 5 mg Metformin HCl (Glucophage) 1,000 mg PO BID [facility] Stop: 01/14/18 08:59 Last Admin: 11/16/17 16:53 Dose: 1,000 mg Rivaroxaban (Xarelto) 20 mg PO DAILY [facility] Stop: 01/14/18 08:59 Last Admin: 11/16/17 08:25 Dose: 20 mg General: alert HEENT: NC/AT, PERRLA, EOMI, anicteric sclerae, throat clear Neck: Supple, No JVD, No thyromegaly, +2 carotid pulse wo bruit, No LAD Cardiovascular: RRR, Normal S1, Normal S2, without murmur Abdomen: soft, non-tender, non-distended Extremities: clear Neurological: no change Internal Medicine Assmt/Plan - Assessment Assessment: 1.UNCONTROLLED DM. 2.AFIB. 3.HTN. - Plan Plan: CONTINUE ON CURRENT MEDICATION AND DIET. Nutritional Asmnt/Malnutr-PDOC - Dietary Evaluation Malnutrition Findings (Please click <Entered> for more info): Nutritional Asmnt/Malnutrition Start: 11/15/17 14: 56 Text: Status: Complete Freq: Document 11/15/17 14:56 AKASHAYANA (Rec: 11/15/17 15:09 AKASHAYANA [email or web address]) Nutritional Asmnt/Malnutrition Patient General Information Nutritional Screening High Risk Consult Diagnosis uncontrolled DM Pertinent Medical Hx/Surgical Hx DM on insulin, chronic a fib, HTN, obesity Subjective Information Consult received for unconctrolled DM. RN called this morning that pt requested another sandwich again d/t pt feeling hungry after consuming 100% of breakfast. Talk with RN, will send double protein and veggies with meals. Pt seen lying in bed at time of visit, awake and alert. Pt is aware of risk of uncontrolled DM, ready to make some change on diet. Pt also reported he has no teeth, not able to chew the regular textured food. Offered [facility] soft ground diet, pt would like to take it. Per EMR, PO intake 100% of meals with extra snacks. Current Diet Order/ Nutrition Support CCHO-60gm, double protein double veggies Pertinent Medications novolog, glucophage, nacl 0.45 % Pertinent Labs 11/14 Na 126, K 3.5, Cl 91, BUN 14, Cr 1.1, glucose 532, POC 233-548 11/15 POC 295 Nutritional Hx/Data Height 1.68 m Height (Calculated Centimeters) 167.6 Current Weight (lbs) 99.79 kg Weight (Calculated Kilograms) 99.8 Weight (Calculated Grams) 53393.3 [place] Body Weight 142 Body Mass Index (BMI) 35.5 Weight Status Obese GI Symptoms GI Symptoms None Last BM none Difficult in: None Usual diet at home Pt stated he loves root bear, ice cream, cakes, no diet restrictions. Skin Integrity/Comment: ulceration to right leg and right knee Estimated Nutritional Goals BEE in Kcals: Adj wt of IBW Calories/Kcals/Kg 25-30 Kcals Calculated 0957-5325 Protein: Adj wt of IBW Protein g/k-1.2 Protein Calculated 73-87 Fluid: ml 1825-2190ml (1ml/kcal) Nutritional Problem 1. Problem Problem altered nutrition related labs Etiology hx of DM, not following diabetic diet Signs/Symptoms: glucose 532, POC 233-548 Malnutrition Alert Protein-Calorie Malnutrition N/A Is there a minimum of two criteria No selected? Query Text:Check all the applicable criteria. A minimum of two criteria are recommended for diagnosis of either severe or non-severe malnutrition. Intervention/Recommendation Comments 1. Recommend [facility] soft ground, CCHO-60gm with double protein and veggies. KELLEN Hogan said doctor will follow RD recommendation. Updated diet. [facility]. [facility] Brief nutrition education provided. Handout left on table. Will talk more details on diabetic diet at next visit. 3. Monitor PO intake, wt, labs and skin integrity 4. F/U as high risk in 2-3 days, 11/17-11/18 Expected Outcomes/Goals Expected Outcomes/Goals 1. PO intake to meet at least 75% of nutritional needs. 2. Wt stability, skin to remain intact, labs to approach WNL.
[2017-11-16] MEDS: Insulin Detemir 100 units/mL 10mL Vial SUBQ SCH (21:15)
[2017-11-17] MEDS: Sodium Chloride 0.45% 1,000 ML IV SCH ×2 (06:47→15:05)
[2017-11-17 06:58] LABS: ALB/GLOB RATIO 1.3 (1.0-1.8); ALBUMIN 3.1 gm/dL (4.2-5.5); ALKALINE PHOSPHATASE 72 U/L (34-104); ANION GAP 11.2 (7.0-16.0); BILIRUBIN,TOTAL 0.4 mg/dL (0.3-1.0); BUN - UREA NITROGEN 16 mg/dL (7-25); CALCIUM SERUM 8.3 mg/dL (8.6-10.3); CARBON DIOXIDE 19.8 mEq/L (21.0-31.0); CHLORIDE 105 mEq/L (98-107); CREATININE - SERUM 0.9 mg/dL (0.7-1.3); GFR AFRICAN-AMERICAN > 60.0 ml/min (>90); GFR NON AFRICAN-AMERICAN > 60.0 ml/min; GLUCOSE 239 mg/dL (70-105); SGOT 24 U/L (13-39); SGPT/ALT 27 U/L (7-52); SODIUM SERUM 132 mEq/L (136-145); TOTAL PROTEIN,SERUM 5.5 gm/dL (6.0-8.3)
[2017-11-17] MEDS: INSULIN ASPART SLIDING SCALE 100 UNITS/ML UNIT SUBQ SCH ×5 (08:09→21:09)
[2017-11-17] MEDS: Diltiazem 30 mg Tab PO SCH ×3 (10:26→21:01)
--- NOTE | 2017-11-17 20:43 | Discharge Summary ---
DATE OF DISCHARGE: 11/17/2017 DATE OF DISCHARGE: 11/17/2017. FINAL DIAGNOSES: 1. Uncontrolled diabetes mellitus. 2. Hypertension. 3. Hyperlipidemia. 4. Chronic atrial fibrillation. REVIEW OF HISTORY: A 57-year-old male with long history of hypertension, hyperlipidemia, chronic AFib, and diabetes mellitus; presented to the Emergency Room with severe hyperglycemia. Evaluated by the ER physician, admitted to the hospital, started him on IV fluid, CCHO diet, sliding scale with regular insulin coverage. The patient will resume his home medications. PHYSICAL EXAMINATION: GENERAL: He was awake, alert, oriented. No fever, no chills. VITAL SIGNS: Temperature 98.6, heart rate 66, and blood pressure 140/80. CHEST: Clear to auscultation. ABDOMEN: Soft, bowel sounds positive. LABORATORY DATA: White blood cell 9.6, hemoglobin 15.3, and hematocrit 45.6. Sodium 126 and potassium 3.5. COURSE OF HOSPITALIZATION: During hospitalization, the patient improved clinically. On the 11/17/2017, the patient was feeling better, no chest pain, no shortness of breath, no nausea, no vomiting. Blood sugar is well controlled. DISPOSITION: On 11/17/2017, the patient discharged home. FOLLOWUP: Follow up with primary physician as outpatient. CONDITION ON DISCHARGE: Stable. MEDICATIONS: Follow discharge reconciliation. JOB# [id number]
[2017-11-17] MEDS: Insulin Detemir 100 units/mL 10mL Vial SUBQ SCH (21:00)
[2017-11-18] MEDS: Sodium Chloride 0.45% 1,000 ML IV SCH (01:58)
[2017-11-18] MEDS: INSULIN ASPART SLIDING SCALE 100 UNITS/ML UNIT SUBQ SCH (08:15)
[2017-11-18] MEDS: Diltiazem 30 mg Tab PO SCH (09:04)
== END 2017-11-18 11:20 | disposition home or self-care (01) | DRG 420 ==
LOC: ER 16:28 → TELE 18:57 → UNDOADMIN 19:35 → TELE 19:35 → ICU 21:25 → MSI 11-16 06:26
PROVIDERS: ADMIT Family Medicine; ATTEND Family Medicine
PROC: 3E0234Z Introduction of Serum, Toxoid and Vaccine into Muscle, Percutaneous Approach (ICD-10-PCS; principal; 2017-11-15)
DX: E11.00 Type 2 diabetes mellitus with hyperosmolarity without nonketotic hyperglycemic-hyperosmolar coma (NKHHC) (principal); I11.0 Hypertensive heart disease with heart failure; I50.9 Heart failure, unspecified; E11.65 Type 2 diabetes mellitus with hyperglycemia; I48.2 Chronic atrial fibrillation; E87.1 Hypo-osmolality and hyponatremia; E66.9 Obesity, unspecified; F32.9 Major depressive disorder, single episode, unspecified; F17.210 Nicotine dependence, cigarettes, uncomplicated; E78.5 Hyperlipidemia, unspecified; I48.92 Unspecified atrial flutter; Z79.01 Long term (current) use of anticoagulants; Z23 Encounter for immunization; Z68.35 Body mass index [BMI] 35.0-35.9, adult; Z79.4 Long term (current) use of insulin; Z59.0 Homelessness
CPT/HCPCS: 36415-UA; 36600-90; 71045-TC; 80053-TC; 80307; 80320-TC; 81001-TC; 82803-TC; 82948-90; 83036-90; 84443-TC; 84484-TC; 84550-TC; 85025-TC; 85610-TC; 85730-TC; 90732; 93005; 96374; J1815; J7030; Z7610